=== PATIENT | female | born 1980 | race Caucasian/White ===

== ENCOUNTER 2020-09-05 15:47 | Inpatient (IN) | payer OTHER ==
[~2020-09-05] VITALS: Ht 160 cm; Wt 76.3 kg
[2020-09-05] VITALS (8 sets, daily range): BP systolic 111–144; BP diastolic 72–84
[~2020-09-05 15:47] MED LIST: FOLI0.4T5 PO; PREN1TAB60 PO
[2020-09-05] MEDS ORDERED: OXYTOCIN 30U/ 0.9% NaCL 500ML 500 ML ONE (15:54)
[2020-09-05] MEDS ORDERED: OXYTOCIN 30U/ 0.9% NaCL 500ML 500 ML IV ONE (16:00)
[2020-09-05] MEDS ORDERED: CALCIUM CARBONATE 500 MG TAB.CHEW PO PRN ×2 (16:00→16:30)
[2020-09-05] MEDS ORDERED: FENTANYL PF 100 MCG/2ML IVPush PRN (16:00)
[2020-09-05] MEDS ORDERED: LACTATED RINGERS 1,000 ML IV SCH (16:00)
[2020-09-05] MEDS ORDERED: TERBUTALINE 1 MG/ML, 1ML SQ PRN (16:00)
[2020-09-05] MEDS ORDERED: TERBUTALINE 1 MG/ML, 1ML IVPush PRN (16:00)
[2020-09-05] MEDS ORDERED: FENTANYL PF 100 MCG/2ML IV PRN (16:00)
[2020-09-05] MEDS: OXYTOCIN 30U/ 0.9% NaCL 500ML 500 ML IV SCH (16:01)
[2020-09-05] MEDS ORDERED: NEWBORN KIT ONE (16:03)
[2020-09-05 16:26] LABS: BASOPHILS % (AUTO) 0 % (0-1); EOSINOPHILS % (AUTO) 0 % (1-7); LYMPHOCYTES % (AUTO) 10 % (22-44); MEAN CORPUSCULAR HEMOGLOBIN 33.8 pg (27.0-34.8); MEAN CORPUSCULAR HGB CONC 35.2 g/dL (32.4-35.8); MEAN PLATELET VOLUME 9.3 fL (7.4-10.4); MONOCYTES % (AUTO) 3 % (2-9); NEUTROPHILS % (AUTO) 86 % (42-75); PLATELET COUNT 136 x10^3/uL (130-400); RED BLOOD COUNT 3.67 x10^6/uL (3.82-5.3); RED CELL DISTRIBUTION WIDTH 12.9 % (9.6-15.2)
[2020-09-05] MEDS ORDERED: RHOGAM FROM BLOOD BANK 1 NOTE EA IM/IV ONE (16:30)
[2020-09-05] MEDS ORDERED: ONDANSETRON 2MG/ML, 2ML IV PRN (16:30)
[2020-09-05] MEDS ORDERED: OXYcodone/APAP 5/325MG TABLET PO PRN ×2 (16:30)
[2020-09-05] MEDS ORDERED: DOCUSATE 100 MG CAPSULE PO PRN (16:30)
[2020-09-05] MEDS ORDERED: DIPH,PERTUSS(ACELL),TET VAC/PF NC IM-VACC PRN (16:30)
[2020-09-05] MEDS ORDERED: MAGNESIUM HYDROXIDE 8%, 30ML UDC PO PRN (16:30)
[2020-09-05] MEDS ORDERED: SIMETHICONE 80 MG CHEW TAB PO PRN (16:30)
[2020-09-05] MEDS ORDERED: ACETAMINOPHEN 325 MG TABLET PO PRN ×2 (16:30)
[2020-09-05] MEDS ORDERED: IBUPROFEN 600 MG TABLET PO PRN (16:30)
[2020-09-05] MEDS ORDERED: MISOPROSTOL 200 MCG TABLET PR PRN (16:30)
[2020-09-05 16:33] LABS: MD NO
[2020-09-05] MEDS: METHYLERGONOVINE 0.2 MG/ML IM PRN ×2 (19:30→19:40)
[2020-09-05] MEDS ORDERED: METHYLERGONOVINE 0.2 MG/ML IM ONE (19:32)
[2020-09-05] MEDS ORDERED: TRANEXAMIC ACID 100 MG/ML, 10ML ONE (20:50)
[2020-09-05] MEDS ORDERED: TRANEXAMIC ACID 100 MG/ML, 10ML IV ONE (21:00)
[2020-09-05 21:04] LABS: BASOPHILS % (AUTO) 1 % (0-1); EOSINOPHILS % (AUTO) 0 % (1-7); LYMPHOCYTES % (AUTO) 11 % (22-44); MEAN CORPUSCULAR HEMOGLOBIN 33.9 pg (27.0-34.8); MEAN CORPUSCULAR HGB CONC 35.3 g/dL (32.4-35.8); MEAN PLATELET VOLUME 9.2 fL (7.4-10.4); MONOCYTES % (AUTO) 4 % (2-9); NEUTROPHILS % (AUTO) 84 % (42-75); PLATELET COUNT 150 x10^3/uL (130-400); RED BLOOD COUNT 3.32 x10^6/uL (3.82-5.3); RED CELL DISTRIBUTION WIDTH 12.8 % (9.6-15.2)
[2020-09-05 21:05] LABS: MD NO
[2020-09-05 21:17] LABS: INTERNATIONAL NORMALIZED RATIO 0.93 (0.93-1.1)
[2020-09-05] MEDS: LACTATED RINGERS 1,000 ML IV SCH (22:34)
[2020-09-06 01:21] LABS: BASOPHILS % (AUTO) 1 % (0-1); EOSINOPHILS % (AUTO) 0 % (1-7); LYMPHOCYTES % (AUTO) 11 % (22-44); MEAN CORPUSCULAR HEMOGLOBIN 34.2 pg (27.0-34.8); MEAN CORPUSCULAR HGB CONC 35.5 g/dL (32.4-35.8); MEAN PLATELET VOLUME 8.7 fL (7.4-10.4); MONOCYTES % (AUTO) 4 % (2-9); NEUTROPHILS % (AUTO) 85 % (42-75); PLATELET COUNT 121 x10^3/uL (130-400); RED CELL DISTRIBUTION WIDTH 12.9 % (9.6-15.2)
[2020-09-06 01:28] LABS: MD NO
[2020-09-06 01:29] LABS: ALANINE AMINOTRANSFERASE 23 U/L (12-78); ALBUMIN 1.9 g/dL (3.4-5.0); ANION GAP 9 mmol/L (5-15); CALCIUM 7.4 mg/dL (8.5-10.1); CHLORIDE 110 mmol/L (98-107)
[2020-09-06 01:32] LABS: ALKALINE PHOSPHATASE 97 U/L (45-117); BILIRUBIN,TOTAL 0.3 mg/dL (0.2-1.0); CREATININE 0.66 mg/dL (0.55-1.02); TOTAL PROTEIN 4.6 g/dL (6.4-8.2)
[2020-09-06 01:45] VITALS: BP 105/70
[2020-09-06] MEDS: OXYTOCIN 30U/ 0.9% NaCL 500ML 500 ML IV SCH ×2 (04:50→12:30)
[2020-09-06 05:20] VITALS: BP 103/63
[2020-09-06 06:46] LABS: BASOPHILS % (AUTO) 1 % (0-1); EOSINOPHILS % (AUTO) 0 % (1-7); LYMPHOCYTES % (AUTO) 9 % (22-44); MEAN CORPUSCULAR HEMOGLOBIN 34.1 pg (27.0-34.8); MEAN PLATELET VOLUME 8.7 fL (7.4-10.4); MONOCYTES % (AUTO) 5 % (2-9); NEUTROPHILS % (AUTO) 85 % (42-75); PLATELET COUNT 125 x10^3/uL (130-400); RED BLOOD COUNT 2.52 x10^6/uL (3.82-5.3)
[2020-09-06 06:47] LABS: MD NO
[2020-09-06] MEDS: LACTATED RINGERS 1,000 ML IV SCH ×2 (07:00→15:00)
[2020-09-06] MEDS ORDERED: FERROUS SULFATE 325 MG TABLET PO SCH (08:00)
[2020-09-06 08:45] VITALS: BP 93/63
[2020-09-06] MEDS ORDERED: PRENATAL VIT/IRON/FA 1 EACH TABLET PO SCH (09:00)
[2020-09-06 13:00] VITALS: BP 103/68
[2020-09-06 17:00] VITALS: BP 116/73
[2020-09-06] MEDS ORDERED: IBUP-1222 PO (17:03)
== END 2020-09-06 18:05 | disposition home or self-care (01) | DRG 797 ==
LOC: LDOP 15:47 → LDIP 15:55 → 2NW 17:57
PROVIDERS: ADMIT Obstetrics & Gynecology; ATTEND Obstetrics & Gynecology
PROC: 10E0XZZ Delivery of Products of Conception, External Approach (ICD-10-PCS; principal; 2020-09-05)
PROC: 10D17ZZ Extraction of Products of Conception, Retained, Via Natural or Artificial Opening (ICD-10-PCS; 2020-09-06)
DX: O62.3 Precipitate labor (principal); O72.1 Other immediate postpartum hemorrhage; Z37.0 Single live birth; D62 Acute posthemorrhagic anemia; Z3A.39 39 weeks gestation of pregnancy; Z20.822 Contact with and (suspected) exposure to COVID-19; O90.81 Anemia of the puerperium
CPT/HCPCS: 36415; 80053; 82330; 84550; 85025; 85384; 85610; 85730; 86592; 86850; 86900; 86923; 87635; 88305; G0378; J2210; J2590; J7120